=== PATIENT | female | born 1955 | race Caucasian/White ===

== ENCOUNTER 2019-10-07 14:01 | Emergency (ER) | payer OTHER ==
--- NOTE | 2019-10-07 14:18 | EDM.PDOC ---
ED HPI GENERAL MEDICAL PROBLEM - General Chief Complaint: Cardiovascular Problem Stated Complaint: A FIB Time Seen by Provider: 10/07/19 14:10 Source of Information: Reports: Patient History Limitations: Reports: No Limitations - History of Present Illness INITIAL COMMENTS - FREE TEXT/NARRATIVE: 64-year-old male with history of SVT/atrial tachycardia and paroxysmal atrial fibrillation who reports that at approximately 11 AM today she developed of her heart beating fast. She states that she has this occur intermittently and he usually just converts her goes back to a normal rhythm on his own but today was not doing that and so she called her nurse behavioral health care's office as she has a loop recorder in place and they instructed her to come to the emergency department for evaluation for something to decrease her rate. During this time she was a slight discomfort and tightness in her chest that she would rated as a 4/10 that is as she reports has always been present in the past when she has this fast heart rate. She has no shortness of breath. She does feel somewhat lightheaded but has had no near syncopal feeling. No nausea or vomiting. No abdominal pain. No known inciting event. She has been taking her medications as directed. She did take her Toprol-XL 100 mg this morning. No fevers. No cough and no sore throat. There are no other associated signs or symptoms. There are no other modifying factors. Onset: Today (11 AM) Duration: Constant Location: Reports: Chest Quality: Reports: Other (Tightness) Severity: Mild (to moderate) Improves with: Reports: None Worsens with: Reports: None Context: Reports: Other (As above) Associated Symptoms: Reports: No Other Symptoms (Sept as above) Treatments NET MENDER: Reports: Other (see below) (Nothing.) - Related Data Allergies Allergy/AdvReac Type Severity Reaction Status Date / Time diltiazem Allergy Rash Verified 10/07/19 16:31 ondansetron HCl Allergy Rash Verified 06/16/14 16:38 [From Zofran (as hydrochloride)] Home Meds: Home Meds Acetaminophen [Non-Aspirin 8 Hour] 650 mg PO Q4H PRN 06/16/14 [History] Escitalopram Oxalate 20 mg PO DAILY 06/16/14 [History] Lisinopril/Hydrochlorothiazide [Lisinopril-Hctz 20-12.5 mg Tab] 12.5 - 20 tab PO DAILY 06/16/14 [History] Loratadine 10 mg PO DAILY 06/16/14 [History] Montelukast Sodium 10 mg PO BEDTIME 06/16/14 [History] Multivitamin [Multi-Vitamin Daily] 2 each PO DAILY 06/16/14 [History] Cyanocobalamin (Vitamin B-12) [Vitamin B-12] 1,000 mcg SL DAILY 05/25/16 [ History] Fluticasone Propionate [Flonase] 1 spray NS DAILY 05/25/16 [History] Metoprolol Tartrate 50 mg PO BID 05/27/16 [History] Acetaminophen [Tylenol Jr. [place]] 640 mg PO Q6H PRN #0 tab.dis 05/31/16 [Rx] Acetaminophen/HYDROcodone [Acetaminophen/HYDROcodone 108-2.5 MG/5 ML] 15 ml PO Q3H PRN #1 bottle 05/31/16 [Rx] Warfarin Sodium [Jantoven] 5 mg PO DAILY #0 05/31/16 [Rx] Past Medical History HEENT History: Reports: Impaired Vision Cardiovascular History: Reports: Afib (Paroxysmal), Arrhythmia (SVT/atrial tachycardia) Respiratory History: Reports: Sleep Apnea Genitourinary History: Reports: Urinary Incontinence [employer] History: Reports: Dysfunctional Uterine Bleeding, Fibroids Musculoskeletal History: Reports: Osteoarthritis - Infectious Disease History Infectious Disease History: Reports: Chicken Pox, Measles - Past Surgical History Cardiovascular Surgical History: Reports: Cardiac Ablation, Other (See Below) ( Loop cardiac recorder inserted) GI Surgical History: Reports: Cholecystectomy Musculoskeletal Surgical History: Reports: Knee Replacement Social & Family History - Tobacco Use Smoking Status *Q: Unknown Ever Smoked (Nonsmoker) - Caffeine Use Caffeine Use: Reports: None - Alcohol Use Alcohol Use History: No - Living Situation & Occupation Occupation: Employed (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 Chest tightness.) Endocrine: Reports: No Symptoms GI/Abdominal: Reports: No Symptoms : Reports: No Symptoms Musculoskeletal: Reports: No Symptoms Skin: Reports: No Symptoms Neurological: Reports: No Symptoms Psychiatric: Reports: No Symptoms Hematologic/Lymphatic: Reports: No Symptoms (No chronic anticoagulation) Immunologic: Reports: No Symptoms ED EXAM, GENERAL - Physical Exam Exam: See Below Exam Limited By: No Limitations General Appearance: Alert, Mild Distress, Obese, Other (Nontoxic.) Eye Exam: Bilateral Eye: EOMI, Normal Inspection, PERRL Ears: Normal External Exam, Hearing Grossly Normal Ear Exam: Bilateral Ear: Auricle Normal Nose: Normal Inspection, Normal Mucosa, No Blood Throat/Mouth: Normal Inspection, Normal Oropharynx, Normal Voice, No Airway Compromise Head: Atraumatic, Normocephalic Neck: Normal Inspection, Supple, Non-Tender, Full Range of Motion Respiratory/Chest: No Respiratory Distress, Lungs Clear, Normal Breath Sounds, No Accessory Muscle Use, Chest Non-Tender Cardiovascular: No Gallop, No Murmur, Tachycardia Peripheral Pulses: 2+: Radial (L), Radial (R), Dorsalis Pedis (L), Dorsalis Pedis (R) GI/Abdominal: Normal Bowel Sounds, Soft, Non-Tender, No Mass Back Exam: Normal Inspection, Full Range of Motion Extremities: Normal Inspection, Normal Range of Motion, Non-Tender, No Pedal Edema, Normal Capillary Refill Neurological: Alert, Oriented, CN II-XII Intact, Normal Cognition, No Motor/ Sensory Deficits Psychiatric: Normal Affect Skin Exam: Warm, Dry, Intact, Normal Color, No Rash EKG INTERPRETATION EKG Date: 10/07/19 Time: 14:17 Rhythm: Other (Junctional tachycardia) Rate (Beats/Min): 116 [place]: Normal P-Wave: Absent QRS: RBBB ST-T: Normal QT: Prolonged (QTc) Comparison: Change From Previous EKG (Compared to EKG performed on 03/16/2015, right bundle-branch block is new.) EKG Interpretation Comments: Repeat EKG performed at 4:25 PM shows a normal sinus rhythm with a rate of 65. There was a normal axis with normal intervals including a normal QTC and a normal NE interval. This was a normal EKG. Course - Vital Signs Last Recorded V/S: Last Vital Signs Temp Pulse 122 H 10/07/19 15:05 Resp BP 131/86 10/07/19 15:05 Pulse Ox - Orders/Labs/Meds Orders: Active Orders 24 hr Category Date Time Status EKG Documentation Completion [RC] ASDIRECTED Care 10/07/19 14:31 Active Sodium Chloride 0.9% [Saline Flush] Med 10/07/19 14:30 Active 10 ml FLUSH ASDIRECTED PRN Peripheral IV Insertion Adult [OM.PC] Routine Oth 10/07/19 14:30 Ordered EKG 12 Lead [EK] Routine Ther 10/07/19 14:30 Ordered Medication Orders Sodium Chloride (Saline Flush) 10 ml FLUSH ASDIRECTED PRN PRN Reason: Keep Vein Open Last Admin: 10/07/19 14:55 Dose: 10 ml Labs: Laboratory Tests 10/07/19 10/07/19 10/07/19 Range/Units 14:40 14:40 14:40 WBC 5.6 (4.5-12.0) X10-3/uL RBC 4.88 (3.23-5.20) x10(6)uL Hgb 14.5 (11.5-15.5) g/dL Hct 42.8 (30.0-51.3) % MCV 87.7 (80-96) fL MCH 29.7 (27.7-33.6) pg MCHC 33.9 (32.2-35.4) g/dL RDW 12.3 (11.5-15.5) % Plt Count 169 (125-369) X10(3)uL MPV 8.6 (7.4-10.4) fL Neut % (Auto) 63.9 (46-82) % Lymph % (Auto) 24.6 (13-37) % [place] % (Auto) 8.0 (4-12) % Eos % (Auto) 3 (1.0-5.0) % Baso % (Auto) 1 (0-2) % Neut # (Auto) 3.7 (1.6-8.3) # Lymph # (Auto) 1.4 (0.6-5.0) # [place] # (Auto) 0.4 (0.0-1.3) # Eos # (Auto) 0.1 (0.0-0.8) # Baso # (Auto) 0.0 (0.0-0.2) # Sodium 141 (135-145) mmol/L Potassium 3.9 (3.5-5.3) mmol/L Chloride 107 (100-110) mmol/L Carbon Dioxide 25 (21-32) mmol/L BUN 26 H (7-18) mg/dL Creatinine 0.8 (0.55-1.02) mg/dL Est Cr Clr Drug Dosing TNP Estimated GFR (MDRD) > 60 (>60) BUN/Creatinine Ratio 32.5 H (9-20) Glucose 118 H (80-116) mg/dL Calcium 8.5 L (8.6-10.2) mg/dL Magnesium 2.1 (1.8-2.5) mg/dL Total Bilirubin 0.3 (0.1-1.3) mg/dL AST 33 H (5-25) IU/L ALT 47 H (12-36) U/L Alkaline Phosphatase 106 (56-112) IU/L Troponin I 8.0 (4.0-60.3) pg/mL Total Protein 7.1 (6.0-8.0) g/dL Albumin 3.6 (3.2-4.6) g/dL Globulin 3.5 g/dL Albumin/Globulin Ratio 1.0 TSH, Ultra Sensitive 2.60 (0.36-3.74) IU/mL Urine Color (YELLOW) Urine Appearance (CLEAR) Urine pH (5.0-6.5) Ur Specific [place] (1.010-1.025) Urine Protein (NEGATIVE) mg/dL Urine Glucose (UA) (NORMAL) mg/dL Urine Ketones (NEGATIVE) mg/dL Urine Occult Blood (NEGATIVE) Urine Nitrite (NEGATIVE) Urine Bilirubin (NEGATIVE) Urine Urobilinogen (NEGATIVE) mg/dL Ur Leukocyte Esterase (NEGATIVE) Urine RBC (0-5) Urine WBC (0-5) Ur Squamous Epith Cells (NS,R,O) Urine Bacteria (NS) 10/07/19 Range/Units 14:45 WBC (4.5-12.0) X10-3/uL RBC (3.23-5.20) x10(6)uL Hgb (11.5-15.5) g/dL Hct (30.0-51.3) % MCV (80-96) fL MCH (27.7-33.6) pg MCHC (32.2-35.4) g/dL RDW (11.5-15.5) % Plt Count (125-369) X10(3)uL MPV (7.4-10.4) fL Neut % (Auto) (46-82) % Lymph % (Auto) (13-37) % [place] % (Auto) (4-12) % Eos % (Auto) (1.0-5.0) % Baso % (Auto) (0-2) % Neut # (Auto) (1.6-8.3) # Lymph # (Auto) (0.6-5.0) # [place] # (Auto) (0.0-1.3) # Eos # (Auto) (0.0-0.8) # Baso # (Auto) (0.0-0.2) # Sodium (135-145) mmol/L Potassium (3.5-5.3) mmol/L Chloride (100-110) mmol/L Carbon Dioxide (21-32) mmol/L BUN (7-18) mg/dL Creatinine (0.55-1.02) mg/dL Est Cr Clr Drug Dosing Estimated GFR (MDRD) (>60) BUN/Creatinine Ratio (9-20) Glucose (80-116) mg/dL Calcium (8.6-10.2) mg/dL Magnesium (1.8-2.5) mg/dL Total Bilirubin (0.1-1.3) mg/dL AST (5-25) IU/L ALT (12-36) U/L Alkaline Phosphatase (56-112) IU/L Troponin I (4.0-60.3) pg/mL Total Protein (6.0-8.0) g/dL Albumin (3.2-4.6) g/dL Globulin g/dL Albumin/Globulin Ratio TSH, Ultra Sensitive (0.36-3.74) IU/mL Urine Color Yellow (YELLOW) Urine Appearance Clear (CLEAR) Urine pH 5.0 (5.0-6.5) Ur Specific [place] 1.010 (1.010-1.025) Urine Protein Negative (NEGATIVE) mg/dL Urine Glucose (UA) Normal (NORMAL) mg/dL Urine Ketones Negative (NEGATIVE) mg/dL Urine Occult Blood Negative (NEGATIVE) Urine Nitrite Negative (NEGATIVE) Urine Bilirubin Negative (NEGATIVE) Urine Urobilinogen Normal (NEGATIVE) mg/dL Ur Leukocyte Esterase Negative (NEGATIVE) Urine RBC 0-5 (0-5) Urine WBC 0-5 (0-5) Ur Squamous Epith Cells Occasional (NS,R,O) Urine Bacteria Rare H (NS) Meds: Medications Generic Name Dose Route Start Last Admin Trade Name Freq PRN Reason Stop Dose Admin Sodium Chloride 10 ml 10/07/19 14:30 10/07/19 14:55 Saline Flush FLUSH 10 ml ASDIRECTED PRN Administration Keep Vein Open Discontinued Medications Generic Name Dose Route Start Last Admin Trade Name Freq PRN Reason Stop Dose Admin Adenosine 6 mg 10/07/19 15:31 10/07/19 15:46 Adenocard IVPUSH 10/07/19 15:32 6 mg NOW ONE Administration Diltiazem HCl 20 mg 10/07/19 16:07 10/07/19 16:17 Diltiazem IVPUSH 10/07/19 16:08 20 mg ONETIME ONE Administration Sodium Chloride 500 mls @ 999 mls/hr 10/07/19 14:32 10/07/19 15:00 Normal Saline IV 10/07/19 15:02 999 mls/hr .BOLUS ONE Administration Metoprolol Tartrate 5 mg 10/07/19 14:32 10/07/19 15:05 Lopressor IVPUSH 10/07/19 14:33 5 mg ONETIME ONE Administration - Radiology Interpretation Free Text/Narrative:: Portable chest x-ray shows no acute disease. - Re-Assessments/Exams Free Text/Narrative Re-Assessment/Exam: 10/07/19 15:15: Patient had received metoprolol 5 mg IV about 45 minutes ago and has had no reduction in her heart rate or change in her rhythm. She remains hemodynamically stable but still feels unease related to the fast heart rate. Her blood tests are all reassuringly normal including a normal troponin. 10/07/19 15:40: Patient was given adenosine 6 mg IV with a transient reduction in her heart rate for a few seconds but no change in her rhythm. She tolerated this well without any apparent complications. 10/07/19 15:50: I discussed patient's case with Dr. Nunez, nurse behavioral health care at [facility], and she recommended giving the patient diltiazem IV push for treatment of this her rhythm and if that failed to correct her rhythm then she would recommend transferring the patient. 10/07/19 16:20: Patient was given diltiazem 20 mg IV push and she converted to what appeared to be a normal sinus rhythm with a rate in the 70s. The patient reports she feels much improved. She did however have some itching at the IV site and also in her antecubital fossa with some redness of her skin and the diltiazem infusion. 10/07/19 16:35: The repeat EKG showed a normal sinus rhythm with a rate of 65 with a normal axis and normal intervals and was essentially a normal EKG. She feels much improved. The itching and redness on her arm is spontaneously resolving at this point. She has no difficulty breathing and no throat closing or weakness or dizziness. She feels ready for discharge. I will advise her to take Benadryl 50 mg by mouth when she gets home. Departure - Departure Time of Disposition: 17:02 Disposition: Home, Self-Care 01 Condition: Good (Improved) Clinical Impression: Atrial tachycardia, Allergy to drug Instructions: Supraventricular Tachycardia, Adult, [id number] Referrals: Devante Rosado MD [Primary Care Provider] - Forms: ED Department Discharge Additional Instructions: You had another episode of atrial tachycardia. Your blood tests were all reassuringly normal. Your urine test was normal. Your chest x-ray was normal. Your rhythm converted to a normal sinus rhythm with the medications that you were given. You did appear to have an allergic reaction to the diltiazem and I would recommend that you not take that medication again or at least until you have discussed it with your nurse behavioral health care. You should continue your current medications. You will need to follow-up with your nurse behavioral health care. Back to the emergency department for her in fast heart rate, chest pain, shortness of breath or any other concerning sign or symptom. Sepsis Event Note - Focused Exam Vital Signs: Vital Signs Pulse BP 10/07/19 15:05 122 H 131/86 Date Exam was Performed: 10/07/19 Time Exam was Performed: 18:00 - My Orders Last 24 Hours: My Active Orders 10/07/19 14:30 Sodium Chloride 0.9% [Saline Flush] 10 ml FLUSH ASDIRECTED PRN Peripheral IV Insertion Adult [OM.PC] Routine EKG 12 Lead [EK] Routine 10/07/19 14:31 EKG Documentation Completion [RC] ASDIRECTED - Assessment/Plan Last 24 Hours: My Active Orders 10/07/19 14:30 Sodium Chloride 0.9% [Saline Flush] 10 ml FLUSH ASDIRECTED PRN Peripheral IV Insertion Adult [OM.PC] Routine EKG 12 Lead [EK] Routine 10/07/19 14:31 EKG Documentation Completion [RC] ASDIRECTED
[2019-10-07] MEDS ORDERED: Sodium Chloride 0.9% 10 ML Syringe FLUSH PRN (14:30)
[2019-10-07] MEDS ORDERED: Metoprolol Tartrate 5 MG/5 ML SDV IVPUSH ONE (14:32)
[2019-10-07] MEDS ORDERED: Sodium Chloride 0.9% 500 ML IV ONE (14:32)
[2019-10-07] MEDS ORDERED: Adenosine 6 MG/2 ML SDV IVPUSH ONE (15:31)
[2019-10-07] MEDS ORDERED: Diltiazem 25 MG/5 ML SDV IVPUSH ONE (16:07)
--- NOTE | 2019-10-07 17:35 | CR ---
INDICATION: Fast heart rate. CHEST, ONE VIEW: AP upright portable view of the chest 10/07/19 was compared with 03/16/15 revealing the heart to remain normal in size and shape. There is suggestion of some very minimal calcification in the arch of aorta. Overlying EKG leads noted. Evidence of exogenous obesity is again noted. An active infiltrate or effusion is not identified. IMPRESSION: No acute process. MTDD
[2019-10-07 18:47] VITALS: PULSE 119
[2019-10-07 18:59] VITALS: BP 109/60
== END 2019-10-07 17:30 | disposition home or self-care (01) ==
LOC: FB.ED 14:01
DX: I47.1 Supraventricular tachycardia (principal); T44.7X5A Adverse effect of beta-adrenoreceptor antagonists, initial encounter; I48.91 Unspecified atrial fibrillation; Z88.8 Allergy status to other drugs, medicaments and biological substances; Z79.899 Other long term (current) drug therapy; Z79.01 Long term (current) use of anticoagulants
CPT/HCPCS: 36415; 71045; 80053; 81001; 83735; 84443; 84484; 85025; 93005; 96361; 96374; 96375; 99285; J0153; J3490; J7040